=== PATIENT | male | born 1985 | race Caucasian/White ===

== ENCOUNTER 2021-02-03 10:08 | Outpatient (REF) | payer OTHER, SELFPAY ==
--- NOTE | ~2021-02-03 | XR_ITS ---
EXAMINATION: XR WRIST, LEFT CLINICAL INFORMATION: Pain COMPARISON: None TECHNIQUE: PA, lateral, and oblique views of the left wrist. FINDINGS: The bones and soft tissues are normal. No fracture. Alignment is anatomic with normal joint spaces. No erosions or abnormal soft tissue calcifications. XR/XR wrist LT min 3V IMPRESSION: Normal left wrist.
== END 2021-02-03 10:09 | disposition home or self-care (01) ==
LOC: HO.HMGCX 10:08
PROVIDERS: Visit Provider Hospitalist
DX: Z13.89 Encounter for screening for other disorder (principal)
CPT/HCPCS: 73110

== ENCOUNTER → 2021-05-20 08:27 | Outpatient (REF) | payer OTHER, SELFPAY ==
--- NOTE | 2021-05-20 08:29 | CA_ITS ---
Transthoracic Echocardiogram Patient (Last, First, Middle): Anshul Chapman, Gender: Male Date of : 1985 Age: 35 Procedure Date: 05/20/2021 Procedure Type: Transthoracic Echocardiogram Location: OP Height: 180.34 cm Weight: 88.45 kg BSA: 2.09 m2 Heart Rate: bpm BP: 121 / 77 mmHg Trench Digger: BECKY Referring MD: Anshul Plunkett [facility] [employer] Manager: Naresh Rocha MD Symptoms: R01.1 - Cardiac murmur, unspecified Study Quality: Good ECG Rhythm: Sinus Conclusions: - Essentially normal study Findings Left Ventricle Normal left ventricular size, thickness, and systolic function. The visually estimated ejection fraction is between 60-65%. Spectral Doppler is indicative of a normal filling pattern. Right Ventricle Normal right ventricular cavity size and systolic function. Atria Both atria are normal in size. Interatrial shunt cannot be excluded. Aortic Valve Normal aortic valve structure and function. There is no aortic valve stenosis. There is no aortic valve regurgitation. Mitral Valve Normal mitral valve structure and function. There is trace mitral valve regurgitation. There is no mitral valve stenosis. Pulmonic Valve The pulmonic valve is likely normal. Tricuspid Valve Likely normal tricuspid valve structure and function. There is trace tricuspid valve regurgitation. The right ventricular systolic pressure is normal. The right ventricular systolic pressure is 20 mmHg. Normal right atrial pressure. There is no evidence of pulmonary hypertension. Great Vessels All visible segments of the aorta are normal in size. The pulmonary artery was not well visualized. Venous The inferior vena cava is normal in size. Inferior vena cava flow is normal. Pericardium/Pleural There is no evidence of pericardial effusion. Prior Study Comparison No prior study available for comparison. Measurements 2D Linear Measurements IVSd: 0.87 0.6-0.9/0.6-1.0 cm LVIDd: 4.58 3.9-5.3/4.2-5.9 cm LVIDd Index: 2.19 2.4-3.2/2.2-3.1 cm/m2 LVIDs: 2.93 2.0-3.6 cm LVPWd: 0.88 0.7-1.1 cm LA Diam: 3.40 2.7-3.8/3.0-4.0 cm LAIDs Index: 1.63 1.5-2.3 cm/m2 LV Mass: 163.62 67-162/88-224 g LV Mass Index: 78.29 43-95/49-115 g/m2 LVOT Diam: 2.10 3.0+(-)1.3 cm 2D Systolic Function EF 4C: 62.10 >55% EF 2C: 63.50 >55% EF BiP: 63.50 >55% Mitral Valve MV Pk E: 0.58 MV PK A: 0.39 MV Decel Time: 175.00 E/A: 1.50 E'Lateral: 15.60 E'Medial: 9.14 E/E' Med: 6.40 E/E' Lat: 3.70 PHT: 51.00 MVA PHT: 4.31 Decel Kerr: 3.33 Aortic Valve AoV Pk Nilton: 1.21 AoV Pk Grad: 6.00 LVOT LVOT Pk Nilton: 1.00 LVOT Mn Nilton: 0.67 LVOT VTI: 0.23 LVOT Pk Grad: 4.00 LVOT Mn Grad: 2.00 LVOT Diam: 2.10 LVOT Area: 3.46 Diastolic Function MV Pk E: 0.58 MV Pk A: 0.39 E/A: 1.50 E'Medial: 9.14 E/E' Med: 6.40 E' Laterial: 15.60 E/E' Lat: 3.70 Right Ventricle TAPSE (mm): 2.12 TVS' Nilton: 12.30 Tricuspid Valve TR Pk Nilton: 2.06 TR Pk Grad: 17.00 RA Press: 3.00 RVSP: 20.00 Great Vessels Aorta Ao Asc: 3.00 2.1-3.4 cm Updated in Other Vendor System with Status of Final Naresh Rocha MD electronically signed on 05/21/2021 11:46:45 AM with status of Final
== END ==
LOC: HO.CARD 08:27
PROVIDERS: Visit Provider Nurse Practitioner Family
DX: R01.1 Cardiac murmur, unspecified (principal)
CPT/HCPCS: 93306

== ENCOUNTER 2021-06-08 13:55 | Outpatient (REF) | payer OTHER, SELFPAY ==
[2021-06-08 14:50] LABS: Influenza A PCR NEGATIVE (Negative); Influenza B PCR NEGATIVE (Negative); Resp Syncy Virus RNA Qual PCR NEGATIVE (Negative); SARS COV2 PCR INHOUSE NEGATIVE (Negative)
== END 2021-06-08 13:56 | disposition home or self-care (01) ==
LOC: HO.LNP 13:55
PROVIDERS: Visit Provider Nurse Practitioner Family
DX: Z20.822 Contact with and (suspected) exposure to COVID-19 (principal); R51.9 Headache, unspecified; J34.89 Other specified disorders of nose and nasal sinuses
CPT/HCPCS: 0241U

== ENCOUNTER 2021-09-13 06:33 | Outpatient (REF) | payer OTHER, SELFPAY ==
[2021-09-13 11:38] LABS: Appearance Urine TURBID; Color Urine YELLOW; Glucose Urine UA NEG (NEG); Leukocyte Esterase Urine NEG (NEG); Nitrite Urine NEG (NEG); Specific Gravity - Urine >= 1.030 (1.005-1.025); Urine Blood NEG (NEG); Urine Ketones NEG (NEG); Urine Protein TRACE MG/DL (NEG-TRACE)
[2021-09-13 12:04] LABS: TSH reflex Free T4 1.23 uIU/mL (0.32-4.0)
[2021-09-13 12:07] LABS: Alanine Aminotransferase 41 U/L (0-40); Albumin Level 4.5 g/dL (3.5-5.0); Alkaline Phosphatase 76 U/L (39-117); Anion Gap 13 (12-20); Aspartate Amino Transferase 41 U/L (5-37); Bilirubin Total 0.5 mg/dL (0.0-1.0); Blood Urea Nitrogen 14 mg/dL (9-16); Calcium 9.6 mg/dL (8.4-10.2); Carbon Dioxide 23 mmol/L (22-29); Chloride 107 mmol/L (96-108); Cholesterol 160 mg/dL; Estimated Glomerular Filt Rate > 60; Glucose Fasting 97 mg/dL (60-99); HDL Cholesterol 47 mg/dL; LDL Cholesterol Calculated 101 mg/dl; Potassium 3.9 mmol/L (3.3-5.1); Sodium 139 mmol/L (135-145); Total Protein 6.7 g/dL (6.5-8.0); Triglycerides 64 mg/dL
== END 2021-09-13 06:34 | disposition home or self-care (01) ==
LOC: HO.HMGCLDS 06:33
PROVIDERS: Visit Provider Nurse Practitioner Family
DX: Z00.00 Encounter for general adult medical examination without abnormal findings (principal)
CPT/HCPCS: 36415; 80053; 80061; 81003; 84443

== ENCOUNTER → 2021-10-13 08:00 | Outpatient (BNVA) | payer OTHER, SELFPAY | PROVIDERS: PCP Nurse Practitioner Family; Visit Provider Nurse Practitioner Family | DX: G47.00 Insomnia, unspecified (principal); G47.50 Parasomnia, unspecified; G47.52 REM sleep behavior disorder; R06.83 Snoring; R40.0 Somnolence | CPT/HCPCS: 99202 ==

== ENCOUNTER → 2021-12-26 22:07 | Outpatient (REF) | payer OTHER, SELFPAY | LOC: HO.SL 22:07 | PROVIDERS: PCP Nurse Practitioner Family; Visit Provider Nurse Practitioner Family | DX: G47.33 Obstructive sleep apnea (adult) (pediatric) (principal); R06.83 Snoring | CPT/HCPCS: 95811 ==

== ENCOUNTER 2022-04-13 16:55 | Outpatient (REF) | payer OTHER, SELFPAY ==
[2022-04-13 18:36] LABS: Influenza A PCR NEGATIVE (Negative); Influenza B PCR NEGATIVE (Negative); Resp Syncy Virus RNA Qual PCR NEGATIVE (Negative); SARS COV2 PCR INHOUSE NEGATIVE (Negative)
== END 2022-04-13 16:56 | disposition home or self-care (01) ==
LOC: HO.LNP 16:55
DX: R05.9 Cough, unspecified (principal); Z20.822 Contact with and (suspected) exposure to COVID-19
CPT/HCPCS: 0241U

== ENCOUNTER 2022-05-30 11:24 | Outpatient (REF) | payer OTHER, SELFPAY ==
[2022-05-30 12:17] LABS: Influenza A PCR POSITIVE (Negative); Influenza B PCR NEGATIVE (Negative); Resp Syncy Virus RNA Qual PCR NEGATIVE (Negative); SARS COV2 PCR INHOUSE NEGATIVE (Negative)
== END 2022-05-30 11:25 | disposition home or self-care (01) ==
LOC: HO.LNP 11:24
PROVIDERS: Visit Provider Physician Assistant
DX: Z20.822 Contact with and (suspected) exposure to COVID-19 (principal); B34.9 Viral infection, unspecified
CPT/HCPCS: 0241U

== ENCOUNTER → 2022-07-19 10:56 | Outpatient (BNVA) | payer OTHER, SELFPAY | PROVIDERS: PCP Nurse Practitioner Family; Visit Provider Nurse Practitioner Family | DX: G47.33 Obstructive sleep apnea (adult) (pediatric) (principal); Z99.89 Dependence on other enabling machines and devices | CPT/HCPCS: 99212 ==

== ENCOUNTER 2023-03-20 08:42 | Outpatient (AMB) | payer OTHER, SELFPAY ==
--- NOTE | 2023-03-20 08:49 | AM.OFFWIN_ITS ---
Intake Vital Signs 03/20/23 08:57 Weight 202 lb BP 130/80 Blood Pressure Location Lt brachial Position Sitting Pulse 70 Temp 97.9 F Temp Source Oral Pulse Oximetry (%) 97 Oxygen Delivery Method Room Air Intake Visit Reasons: EP Sore throat, Cough, Runny Nose [phone] Intake Note: Patient here for cough, runny nose and sore throat which started last night. Patient Tobacco Use Status: Former Tobacco user Do you need a note to return to daycare/school/sports/work: Yes HPI HPI Comments History of Present Illness Details This is a 37-year-old male with a past medical history of environmental allergies presenting for evaluation of a sore throat that he has had since last night. Patient denies having any cough, shortness of breath, fevers, chills, ear pain, difficulty swallowing or sinus pain. Patient has taken ibuprofen without relief in his discomfort. He denies having any new sick contacts. PFSH Medical History Cough Surgical History H/O removal of cyst Hx of appendectomy Family History Father Colon cancer Social History Housing: House Alcohol intake: current Alcohol intake frequency: holidays/special occasions only Patient Tobacco Use Status: Former Tobacco user Tobacco use type: Cigarette Years Smoked: 11 years ago e-Cigarette/Vaping Use: Never Used Second Hand Smoke Exposure: No service: Yes Current occupational status: employed Current occupation: [employer] Current occupational exposures/hazards: No Cognitive needs: No Hearing needs: No Vision needs: No Review of Systems Const Denies chills, Denies fatigue, Denies fever(s) and Denies headache(s) Eyes Reports as per HPI ENT Denies otalgia, Denies headache(s), Denies sinus pain, Denies sinus pressure, Reports sore throat, Denies throat swelling and Denies tongue swelling Card Reports no additional complaints and Denies dyspnea Resp Reports no additional complaints, Denies cough and Denies dyspnea Neuro Denies headache(s) Psych Reports no additional complaints Endo Denies fatigue Renard/Lymph Denies lymphadenopathy Aller/Immun Denies throat swelling and Denies tongue swelling Physical Exam Vital Signs: Last Vital Signs Temp 97.9 F 03/20/23 08:57 Pulse 70 03/20/23 08:57 BP 130/80 03/20/23 08:57 Pulse Ox 97 03/20/23 08:57 Oxygen Delivery Method Room Air 03/20/23 08:57 Const Other: Patient is afebrile. General: cooperative, healthy appearing, comfortable and no acute distress Nutritional Appearance: average body habitus Orientation/consciousness: patient oriented x3 Limitations: no limitations HEENT Head: Yes normal to inspection Ears: hearing grossly normal bilaterally, external ears normal and TM's normal bilaterally General nose exam: Normal external nose present Face and sinus: Yes normal facial exam and No sinus tenderness Mouth: Normal oral and palatal mucosa present and moist mucous membranes Teeth and gingiva: dentition normal Throat: Yes posterior oropharynx normal Eyes Conjunctivae: conjunctivae normal Sclerae: sclerae normal Neck Lymphatic: no lymphadenopathy noted Resp Effort & Inspection: normal respiratory effort, no audible wheezes, no cough, no respiratory distress and no stridor Auscultation: clear to auscultation bilaterally Cardio Rate: regular rate Rhythm: regular rhythm Neuro General: patient oriented x3 Psych Appearance: grossly normal Mental Status: mental status grossly normal Insight: Good insight present (Psych) Judgement: Good judgement present (Psych) Results AMB Rapid Strep AMB Rapid Strep Negative Last Edit by DB Flores on 03/20/23 09:05 Results Reviewed Results Reviewed: Laboratory Last Values Strep Scn Rapid Clinic Negative 03/20/23 09:04 Negative rapid strep reviewed with patient. Assessment & Plan Assessment & Plan (1) Acute pharyngitis: Code(s): J02.9 - Acute pharyngitis, unspecified Plan: Ibuprofen OTC as needed for pharyngitis, increased fluids daily and follow-up with primary care physician within 7 days if symptoms are not improving. Orders: Orders AMB Rapid Strep Screen Today Z13.9 - Encounter for screening, unspecified Coding Level of Care Code New Pt Level 3 (82031) Diagnoses Acute pharyngitis J02.9 Time Spent (min) 15
[2023-03-20 08:57] VITALS: BP 130/80; PULSE 70; TEMP 36.6; O2SAT 97
== END 2023-03-20 09:30 | disposition home or self-care (01) ==
PROVIDERS: PCP Nurse Practitioner Family; Visit Provider Physician Assistant
DX: J02.9 Acute pharyngitis, unspecified (principal)
CPT/HCPCS: 87880; 99203

== ENCOUNTER 2023-07-30 09:06 | Outpatient (AMB) | payer OTHER, SELFPAY ==
--- NOTE | 2023-07-30 09:39 | AM.OFFWIN_ITS ---
Intake Vital Signs 07/30/23 09:57 Weight 90.718 kg BP 112/76 Blood Pressure Location Rt brachial Position Sitting Pulse 89 Pulse Source Pulse Oximeter Temp 98.2 F Temp Source Oral Pulse Oximetry (%) 98 Oxygen Delivery Method Room Air Intake Visit Reasons: EST/sore throat runny nose cough ([phone]) Intake Note: patient here for runny nose, sore throat which has been present for a couple of days. Patient Tobacco Use Status: Former Tobacco user Allergies No Known Allergies Allergy (Verified 07/30/23 09:40) Do you need a note to return to daycare/school/sports/work: Yes HPI HPI Comments History of Present Illness Details 37-year-old male presents with fatigue, malaise, myalgias, sore throat, runny nose, ongoing for the past few days worsening. Patient reports that his family is sick at home with COVID. Denies chest pain, shortness breath, changes in voice, nausea, vomiting abdominal pain, headache, vision changes, dizziness, weakness. Still eating and drinking. No changes in urination or bowel habits. Physical exam benign This is likely viral illness flu versus COVID. Unlikely strep pharyngitis. No signs of retropharyngeal abscess, peritonsillar abscess, epiglottitis, threat day airway, acute respiratory distress, pneumonia, PE, ACS. Plan viral testing, strep test. Strep negative. COVID pending. [facility] Medical History Cough Surgical History H/O removal of cyst Hx of appendectomy Family History Father Colon cancer Social History Housing: House Alcohol intake: current Alcohol intake frequency: holidays/special occasions only Patient Tobacco Use Status: Former Tobacco user Tobacco use type: Cigarette Years Smoked: 11 years ago e-Cigarette/Vaping Use: Never Used Second Hand Smoke Exposure: No service: Yes Current occupational status: employed Current occupation: [employer] Current occupational exposures/hazards: No Cognitive needs: No Hearing needs: No Vision needs: No Review of Systems Const All systems reviewed & are unremarkable except as noted in HPI and below Physical Exam Vital Signs: Last Vital Signs Temp 98.2 F 07/30/23 09:57 Pulse 89 07/30/23 09:57 BP 112/76 07/30/23 09:57 Pulse Ox 98 07/30/23 09:57 Oxygen Delivery Method Room Air 07/30/23 09:57 Vital signs stable Appearance: Alert.? Oriented X3.? No acute distress.? Head: Normocephalic, atraumatic, no step-offs or deformities Eyes: Pupils equal, round and reactive to light.? ENT: Pharynx normal.?No abscess or exudate Neck: Normal inspection.? Neck supple.? CVS: Normal heart rate and rhythm.? Pulses normal.? Respiratory: No respiratory distress.? Breath sounds normal.? Abdomen: Soft and nontender.? Skin: Skin warm and dry.? Normal skin color.? Normal skin turgor.? Extremities: No lower extremity edema.? No calf ttp. 5/5 strength to bilateral upper and lower extremities Neuro: Oriented X 3.? No motor deficit.? No sensory deficit. CN 2-12 intact Assessment & Plan Assessment & Plan (1) Viral illness: Code(s): B34.9 - Viral infection, unspecified Plan Take your medications as prescribed. If you were prescribed antibiotics today, it is important that you take your medication to their entirety, do not skip any doses, do not finish them early. Follow-up with your primary care provider this week. Return to the emergency department with new or worsening symptoms. Such as fevers, chills, chest pain, shortness of breath, nausea, vomiting, dizziness, headache, vision changes, lethargy In case of emergency call 911 Orders: Orders [facility]axNOW Covid-19 Ag Today B34.9 - Viral infection, unspecified Coding Level of Care Code Est Pt Level 3 (31166) Diagnoses Viral illness B34.9
[2023-07-30 09:57] VITALS: BP 112/76; PULSE 89; TEMP 36.8; O2SAT 98
== END 2023-07-30 15:26 | disposition home or self-care (01) ==
PROVIDERS: PCP Nurse Practitioner Family; Visit Provider Physician Assistant
DX: B34.9 Viral infection, unspecified (principal); J02.9 Acute pharyngitis, unspecified
CPT/HCPCS: 87880; 99213

== ENCOUNTER 2023-07-30 10:11 | Outpatient (REF) | payer OTHER, SELFPAY ==
[2023-07-30 10:38] LABS: Binax Internal Control QC Valid; Binax Now Covid-19 Ag Negative (Negative); Binax Performed by: HO.BONILM
== END 2023-07-30 10:12 | disposition home or self-care (01) ==
LOC: HO.HMGCLDS 10:11
PROVIDERS: PCP Nurse Practitioner Family; Visit Provider Physician Assistant
DX: Z11.52 Encounter for screening for COVID-19 (principal); B34.9 Viral infection, unspecified
CPT/HCPCS: 87811